=== PATIENT | male | born 1995 | race Caucasian/White ===

== ENCOUNTER → 2018-02-26 | Outpatient (CLI) | payer BC, OTHER ==
--- NOTE | 2018-02-26 12:51 | Diagnostic Imaging Report ---
EXAMINATION: Magnetic resonance imaging of the left knee without intravenous contrast DATE: February 26, 2018. COMPARISON: MRI of the left knee dated December 25, 2015. INDICATION: 22-year-old male, injury playing football. History of prior ACL reconstruction. TECHNIQUE: Multiplanar/multisequence noncontrast enhanced MR imaging was accomplished. FINDINGS: MENISCI: There is mildly increased signal near the meniscocapsular junction of the posterior horn of the medial meniscus, likely relating to prior meniscal tear. This was present on the prior MRI. The medial meniscus is otherwise intact. The lateral meniscus is intact. LIGAMENTS AND TENDONS: The patient is status post anterior cruciate ligament reconstruction. The graft fibers are not particularly well visualized throughout their course and there is a suspected high-grade and likely complete tear of the anterior cruciate ligament graft near the level of the tibial tunnel, perhaps best illustrated on sagittal proton density fat saturation sequence image 13. The medial collateral ligament is intact. The iliotibial band, mid third lateral capsular ligament, fibular collateral ligament, biceps femoris tendon and conjoined tendon are intact. There is susceptibility artifact in the region of the distal quadriceps tendon, compatible with prior procedural changes at this site. There is no tear of the distal quadriceps tendon. The patellar tendon is intact. JOINT: The patellofemoral, medial, and lateral compartment cartilage appears intact. There is a large knee joint effusion. There is no identified intra-articular body or prominent synovitis. BONE: There is unremarkable bone marrow signal. Specifically, negative for fracture, osteomyelitis, osteonecrosis, or marrow replacing process. BURSAE AND SOFT TISSUES: There is very minimal fluid in the popliteal fossa without sizable Clifford's cyst. There is low-level edema in the lateral head of the gastrocnemius muscle which most likely reflects a low-grade muscle strain. There is nonspecific prepatellar subcutaneous edema. IMPRESSION: 1. Status post anterior cruciate ligament reconstruction with lack of well visualized graft throughout its entire extent. There is a suspected complete tear of the anterior cruciate ligament graft near the level of the tibial tunnel. 2. No acute fracture. No bone contusion. 3. Large knee joint effusion without intra-articular body or prominent synovitis. Grossly intact articular cartilage. 4. Post operative changes of the distal quadriceps tendon which is intact. Intact patellar tendon. Additional ligaments and tendons are also intact. 5. Low level edema in the lateral head of the gastrocnemius muscle, most likely reflecting a low-grade muscle strain. 6. Sequela of prior tear in the region of the meniscocapsular junction of the posterior horn of the medial meniscus. No new medial meniscal tear. Intact lateral meniscus. Dictated by: Dictated on workstation # [id number]
== END ==
LOC: RAD 10:03
PROVIDERS: ATTEND Orthopaedic Surgery
DX: S83.242S Other tear of medial meniscus, current injury, left knee, sequela (principal); S83.512A Sprain of anterior cruciate ligament of left knee, initial encounter; Y93.61 Activity, american tackle football; Z98.890 Other specified postprocedural states
CPT/HCPCS: 73721